=== PATIENT | male | born 2000 | race Caucasian/White ===

== ENCOUNTER 2020-02-13 05:20 | Day surgery (SDC) | payer OTHER ==
[2020-02-10 11:07] LABS: HEMATOCRIT 39.2 % (37.9-51.0); HEMOGLOBIN 13.6 g/dL (13.5-17.0); MEAN CORPUSCULAR HEMOGLOBIN 28.5 pg (27.0-33.4); MEAN CORPUSCULAR HGB CONC 34.6 g/dL (32.0-36.0); MEAN CORPUSCULAR VOLUME 82 fl (80-97); PLATELET COUNT 273 10^3/uL (150-450); RED BLOOD COUNT 4.76 10^6/uL (4.35-5.55); RED CELL DISTRIBUTION WIDTH 13.6 % (11.5-14.0); WHITE BLOOD COUNT 9.5 10^3/uL (4.0-10.5)
[~2020-02-13 05:20] MED LIST: CEFAZOLIN 1 GM/D5W RTU 1 GM/50 ML RTUPB IV PRN; LACTATED RINGERS 1000 ML IV PRN; LIDOCAINE 0.5% INJ-PF (5 MG/ML) 50 ML SDV SUBCUT PRN
[2020-02-13] MEDS ORDERED: CEFAZOLIN 2 GM/D5W RTU 2 GM/50 ML RTUPB IV ONE (05:52)
[2020-02-13] MEDS ORDERED: EPHEDRINE SULFATE INJ 50 MG/1 ML AMPULE ONE (06:48)
[2020-02-13] MEDS ORDERED: MIDAZOLAM 2 MG/2 ML INJ ONE ×2 (06:48→07:03)
[2020-02-13] MEDS ORDERED: FENTANYL CITRATE INJ/PF 100 MCG/2 ML AMPUL ONE ×2 (06:48→11:19)
[2020-02-13] MEDS ORDERED: DEXMEDETOMIDINE INJ 80 MCG/20 ML VIAL IV ONE (06:48)
[2020-02-13] MEDS ORDERED: PROPOFOL INJ 200 MG/20 ML VIAL IV ONE (06:56)
[2020-02-13] MEDS ORDERED: ROPIVACAINE HCL 0.5% INJ/PF (5 MG/1 ML) 30 ML SDV ONE (07:04)
[2020-02-13] MEDS ORDERED: DIPHENHYDRAMINE HCL 50 MG/ML VIAL IV PRN (08:19)
[2020-02-13] MEDS ORDERED: PROMETHAZINE HCL INJ 25 MG/1 ML VIAL IV PRN ×2 (08:19)
[2020-02-13] MEDS ORDERED: ONDANSETRON HCL INJ/PF 4 MG/2 ML SDV IV PRN (08:19)
[2020-02-13] MEDS ORDERED: FENTANYL CITRATE INJ/PF 100 MCG/2 ML AMPUL IV PRN ×3 (08:19)
[2020-02-13] MEDS ORDERED: MEPERIDINE HCL/PF INJ 25 MG/1 ML DISP.SYRIN IV PRN (08:19)
--- NOTE | 2020-02-13 11:17 | Operative Report ---
Operative Report DATE OF SURGERY: 02/13/20 Operative Report: The patient was seen by the anesthesia team prior to surgery and a regional anesthesia block was performed. He was brought to the operating room, placed supine on the operating room table where general anesthesia was administered without any apparent complication. He was then repositioned in the lateral decubitus position all bony prominences were padded and an axillary roll was placed, the cervical spine was in neutral. He was then prepped and draped in the normal sterile orthopedic fashion, a timeout for safety was taken in which we identified the correct patient, the correct side, the correct procedure and that we had all necessary equipment in the room. We also verified that he had finished his 2 g of preoperative Ancef prior to surgery once all of this was verified we proceeded with the case. I made a standard posterolateral working portal with an 11 blade and entered the joint atraumatically I began my diagnostic arthroscopy I localized my anterior portal in the rotator interval with a spinal needle and introduced a 7 mm Arthrex cannula. I then probed the superior labrum and found there to be a SLAP tear, the biceps was pulled into the joint and the groove portion was noted to be markedly synovitic. The decision was made to perform a biceps tenotomy for later tenodesis. The biceps tendon was sectioned utilizing the arthroscopic scissors. It retracted into the groove. I then found a [place] like complex anteriorly. The anterior inferior labrum was torn and somewhat medialized. There was a tear that progressed inferiorly to the posterior inferior labrum as well. This was probed with the elevator and found to be unstable and was therefore elevated in order to prepare it for subsequent fixation. I utilized the percutaneous kit to place my 6:00 anchor in the standard fashion for Arthrex knotless suture tacks. A suture tack was placed inferiorly but the black shuttling sutures failed. Another suture tack was placed posterior to it however these sutures shuttled incorrectly resulting in 2 anchors without shuttling sutures. Due to this, I made the decision to shuttle the blue suture back through the labrum and secure it down to bone with 2 adjacent 2.9 mm Arthrex push lock anchors this resulted in excellent inferior fixation of the labrum. 2 more knotless suture tacks were placed posterior inferiorly and posteriorly to approximately the 9 o'clock position which was the extent of the posterior tear. I then switched my viewing portal to the back and percutaneously placed 2 knotless suture tacks at the anterior inferior labrum below the 3:00 Horizon line making sure to not incorporate the [place] complex anteriorly and superiorly. This resulted in a 6 suture repair of the inferior anterior and posterior labrum. The intra-articular portion of the case was completed all instruments were withdrawn. I then proceeded to the open portion of the case I marked out a 2.5cm axillary incision centered over the pectoralis major tendon. It was incised sharply with a 15 blade subcutaneous tissue was divided with Bovie electrocautery and Metzenbaum scissors. I palpated bluntly down onto the biceps fascia which was incised and I retrieved the long head of the biceps from the anterior humerus. The tendon was scarred into the bicipital groove and there was moderate resistance withdrawing the tendon. When it was withdrawn it noted to be significantly inflamed distal to the intra-articular portion signifying groove inflammation. The tendon was whipstitched in the standard fashion from the musculocutaneous junction approximately 2 cm. A locking construct was made and it was loaded onto the biceps button. The anterior humerus was drilled and the anchor was introduced intraosseously. The tendon was then secured down to the anterior face of the humerus. It was secured in place with a surgeon's knot and alternating half hitches. Appropriate tension was noted through arm range of motion. The wound was then copiously irrigated with sterile saline. Cutaneous tissue was closed with 2-0 Vicryl, skin was closed with interrupted 3- 0 nylon stitches, portals were closed with interrupted 3-0 nylon stitches, sterile dressings were placed. The patient awoke from general anesthesia without any apparent complication was subsequently transferred to the PACU in good condition where he will be discharged when he meets the criteria for same- day surgery discharge. PREOPERATIVE DIAGNOSIS: Right shoulder labral tear. POSTOPERATIVE DIAGNOSIS: Same OPERATION: Right shoulder arthroscopy, labral repair, open subpectoral biceps tenodesis. SURGEON: FLORES BENDER ANESTHESIA: GA COMPLICATIONS: None ESTIMATED BLOOD LOSS: 10 cc INTRAOPERATIVE FINDINGS: Operative note
[2020-02-13] MEDS ORDERED: FENTANYL CITRATE INJ/PF 100 MCG/2 ML AMPUL IV ONE (11:21)
[2020-02-13] MEDS ORDERED: ONDANSETRON HCL INJ/PF 4 MG/2 ML SDV ONE (14:04)
[2020-02-13] MEDS ORDERED: KETOROLAC TROMETHAMINE 60 MG/2 ML SDV ONE (14:04)
[2020-02-13] MEDS ORDERED: ROCURONIUM BROMIDE INJ 50 MG/5 ML VIAL IV ONE (14:04)
[2020-02-13] MEDS ORDERED: DEXAMETHASONE SOD PHOSPHATE INJ 4 MG/1 ML VIAL ONE (14:04)
[2020-02-13] MEDS ORDERED: NEOSTIGMINE METHYLSULFATE 10 MG/10 ML VIAL ONE (14:04)
[2020-02-13] MEDS ORDERED: PHENYLEPHRINE HCL INJ/PF 10 MG/1 ML SDV ONE (14:04)
[2020-02-13] MEDS ORDERED: GLYCOPYRROLATE 1 MG/5 ML VIAL ONE (14:04)
[2020-02-13] MEDS ORDERED: LIDOCAINE 2% INJ-PF (20 MG/ML) 2 ML AMPUL ONE (14:04)
[2020-02-13] MEDS ORDERED: SUCCINYLCHOLINE CHLORIDE INJ 200 MG/10 ML VIAL ONE (14:04)
[2020-02-13 14:06] VITALS: BP 123/79
== END 2020-02-13 13:10 | disposition home or self-care (01) ==
LOC: OROUT 05:20
PROVIDERS: ATTEND Orthopaedic Surgery
DX: S43.431A Superior glenoid labrum lesion of right shoulder, initial encounter (principal); X58.XXXA Exposure to other specified factors, initial encounter; Z03.818 Encounter for observation for suspected exposure to other biological agents ruled out; F17.210 Nicotine dependence, cigarettes, uncomplicated; Z87.828 Personal history of other (healed) physical injury and trauma
CPT/HCPCS: 29807; 23430; 36415; 85027; 87635; 64415; 76942; 01630; L3650; C1713 ×3; A4649; J2795; J2250; J3490 ×4; J1100; J1885; J3010; J2710; J2370; J0330; J2405; J2704; J0690; C9803; 1630